=== PATIENT | male | born 1985 | race African-American/Black ===

== ENCOUNTER 2021-03-06 20:03 | Emergency (ER) | payer MEDICAID ==
[~2021-03-06] VITALS: Ht 177.8 cm; Wt 104.0 kg
[2021-03-06] MEDS ORDERED: SODIUM CHLORIDE 0.9% 1,000 ML IV ONE (22:15)
[2021-03-06] MEDS ORDERED: LORAZEPAM 2MG/ML CPJ IV STA (22:15)
[2021-03-06 23:33] LABS: BASOPHILS % 0.5 % (0.0-2.0); EOSINOPHILS % 0.1 % (0.0-5.0); HEMATOCRIT. 44.9 % (42.0-52.0); HEMOGLOBIN. 15.3 g/dL (14.0-18.0); LYMPHOCYTES % 18.4 % (20.0-50.0); MEAN CORPUSCULAR HEMOGLOBIN 29.1 pg (28.0-32.0); MEAN CORPUSCULAR VOLUME 85.4 fL (80.0-94.0); MEAN PLATELET VOLUME 7.7 fl (7.4-10.4); MONOCYTES % 7.9 % (2.0-8.0); NEUTROPHILS % 73.1 % (40.0-76.0); PLATELET 283 x1000/uL (130-400); RED BLOOD CELL COUNT 5.26 mill/uL (4.7-6.1)
[2021-03-06 23:38] LABS: CHLORIDE 102 mEq/L (98-107)
[2021-03-06 23:42] LABS: ETHANOL BLOOD < 10 mg/dL
[2021-03-07] MEDS ORDERED: SODIUM CHLORIDE 0.9% 1,000 ML IV ONE (00:30)
[2021-03-07] MEDS ORDERED: LORAZEPAM 2MG/ML CPJ IV ONE (00:30)
[2021-03-07] MEDS ORDERED: OLANZAPINE 10 MG/VIAL IM ONE (00:30)
[2021-03-07 06:01] VITALS: BP 123/64
== END 2021-03-07 06:37 | disposition home or self-care (01) ==
LOC: ER 20:03
DX: F15.129 Other stimulant abuse with intoxication, unspecified (principal); I10 Essential (primary) hypertension; F20.9 Schizophrenia, unspecified
CPT/HCPCS: 36415; 80053; 80320; 85025; 96361; 96372; 96374; 96375; 99285; J2060; J3490; J7030; G0480